=== PATIENT | female | born 1980 | race Two or more races ===

== ENCOUNTER 2022-02-06 16:38 | Emergency (ER) | payer BC, OTHER | END 2022-02-06 17:40 | disposition left against medical advice (07) | LOC: ER 16:38 → EDBD 16:38 → ER 17:40 | DX: J02.9 Acute pharyngitis, unspecified (principal); M79.10 Myalgia, unspecified site; Z53.21 Procedure and treatment not carried out due to patient leaving prior to being seen by health care provider ==